=== PATIENT | female | born 1955 | race Two or more races ===

== ENCOUNTER 2024-05-27 08:19 | Emergency (ER) | payer MEDICARE, SELFPAY ==
[2024-05-27 08:37] VITALS: BP 132/76; PULSE 65; RESP 18; TEMP 36.8; O2SAT 98
[2024-05-27 08:38] VITALS: BMI 44.3
--- NOTE | 2024-05-27 08:41 | XR_ITS ---
Examination: CT chest, without intravenous contrast. CT abdomen, without intravenous contrast. CT pelvis, without intravenous contrast. 2-D sagittal and coronal reconstructions. 3-D reconstructions. Date and time of exam:May 27, 2024 at 0914 hours INDICATIONS: Patient fell out of bed this morning with injury to the chest and abdomen, chest pain abdomen pain CTDI vol (mgy) 12.6 DLP (MGycm)907 Technique: Multiple CT images, 3.0 mm slice thickness, obtained chest, abdomen, pelvis, with the high-resolution 64 slice scanner.. Sagittal and coronal 2-D reconstructions are obtained. 3-D reconstructions Low dose protocols were performed. One or more of the following dose reduction techniques were used; automated exposure control, adjustment of the mA and/or KV according to patient size, use of iterative reconstruction technique. Findings: Lack of intravenous contrast significantly limits assessment for body trauma Thoracic aorta pulmonary arteries intact No hemopericardium Significant vascular congestion No pneumothorax Atelectasis in the right lower lobe The manubrium and the body the sternum are intact No thoracic or lumbar vertebral body compression fracture Advanced degenerative disc disease L3-L4 Nondisplaced fractures right second third fourth fifth sixth seventh ribs Acute fractures left third fifth sixth seventh eighth ninth ribs without significant displacement No visualized liver splenic or renal laceration Abdominal aorta is intact No free blood in the abdomen Negative for pneumoperitoneum Fat-containing umbilical hernia Urinary bladder intact Acute fractures left third transverse process left fourth transverse process Iliac bones acetabular regions and rami appear intact with no acute hip fractures IMPRESSION: Lack of intravenous contrast significantly limits assessment for body trauma Flail chest with multiple bilateral rib fractures No pneumothorax Abdominal aorta intact No free blood in the abdomen Negative for abdominal parenchymal laceration Acute fractures left third and fourth transverse processes
--- NOTE | 2024-05-27 08:42 | PD.EDFALL ---
ED Fall Injury RME/HPI General Chief Complaint: Fall Stated Complaint: FELL FROM BED THIS MORNING; BACK HURTING Time Seen by Provider: 05/27/24 08:40 Source: patient Arrival date/time: 05/27/24 08:19 68-year-old female with a history of hyperlipidemia, type 2 diabetes on dialysis, hypertension presents to the emergency room with a chief complaint of back pain after falling off her bed this morning Mode of arrival: ambulatory Limitations: no limitations Related Data Home Medications ?Medication ?Instructions ?Recorded ?Confirmed amitriptyline 50 mg tablet 50 mg PO HS 12/12/17 06/18/22 atorvastatin 40 mg tablet 40 mg PO HS 03/08/21 06/18/22 furosemide 40 mg tablet 40 mg PO QAM 03/08/21 06/18/22 albuterol sulfate 90 mcg/actuation 2 inh inhalation QID PRN sob 05/14/21 06/18/22 aerosol inhaler gabapentin 300 mg capsule 300 mg PO HS 05/14/21 06/18/22 insulin glargine 100 unit/mL (3 42 unit subcut HS 05/14/21 06/18/22 mL) subcutaneous pen (Lantus Solostar U-100 Insulin) Held on 06/21/22. Instructions: Resume on 07/05/22. followup with PCP within 1 week for instructions on continuing insulin ergocalciferol (vitamin D2) 1,250 1,250 mcg PO QWEEK 01/05/22 06/18/22 mcg (50,000 unit) capsule (Vitamin D2) hydralazine 50 mg tablet 100 mg PO TID 01/05/22 06/18/22 vitamin B comp no.3-folic acid 1 1 tab PO QDAY 01/05/22 06/18/22 mg-vit C 60 mg-biotin 300 mcg tablet ([facility]) Previous Rx's ?Medication ?Instructions ?Recorded cefdinir 300 mg capsule 300 mg PO BID #7 caps 12/10/23 cefdinir 300 mg capsule See Rx Instructions .Route 12/10/23 .COMPLEX #7 caps hydrocodone 5 mg-acetaminophen 325 1 tab PO Q6H PRN pain #15 tabs 12/10/23 mg tablet Allergies Allergy/AdvReac Type Severity Reaction Status Date / Time Penicillins Allergy Severe RASH Verified 05/27/24 08:23 ED Exam General Limitations: Present no limitations Course Orders Category Date Time Status CT chest abdomen pelvis wo Stat Exams 05/27/24 08:41 Taken XR lumbar spine 2-3V Stat Exams 05/27/24 08:43 Taken Vital Signs Vital signs: Vital Signs Temperature 98.2 F 05/27/24 08:37 Pulse Rate 65 05/27/24 08:37 Respiratory Rate 18 05/27/24 08:37 Blood Pressure 132/76 H 05/27/24 08:37 Pulse Oximetry (%) 98 05/27/24 08:37 Oxygen Delivery Method Room Air 05/27/24 08:37 Discharge Plan Prescriptions/Referrals Prescriptions/Med Rec: No Action amitriptyline 50 mg Tablet 50 mg PO HS furosemide 40 mg Tablet 40 mg PO QAM atorvastatin 40 mg Tablet 40 mg PO HS gabapentin 300 mg Capsule 300 mg PO HS albuterol sulfate 90 mcg/actuation Hfa Aerosol Inhaler 2 inh INHALATION QID PRN (Reason: sob) insulin glargine [Lantus Solostar U-100 Insulin] 100 unit/mL (3 mL) Insulin Pen 42 unit SUBCUT HS hydrocodone-acetaminophen 5-325 mg tablet 1 tab PO Q6H MDD 4 PRN (Reason: pain) Qty: 15 0RF cefdinir 300 mg capsule 300 mg PO BID Qty: 7 0RF Rx Instructions: Take 1st dose today (1 cap). Then 300mg (1 cap) 3 times weekly on dialysis days after dialysis cefdinir 300 mg capsule See Rx Instructions .ROUTE .COMPLEX Qty: 7 0RF Rx Instructions: Take 300 mg (1 cap) orally now. Then 1 cap 3 times weekly on dialysis days after dialysis hydralazine 50 mg Tablet 100 mg PO TID ergocalciferol (vitamin D2) [Vitamin D2] 1,250 mcg (50,000 unit) Capsule 1,250 mcg PO QWEEK [facility] Rx 1-60-300 mg-mg-mcg Tablet 1 tab PO QDAY Referrals: Sara Mirza NP [Primary Care Provider] - In 1 week Patient/Caregiver Discharge Instructions Print Language: Iranian
--- NOTE | 2024-05-27 08:43 | XR_ITS ---
Examination: Lumbar spine 3 views Technique one AP lateral coned lateral lower lumbar spine 3 views Exam date and time: May 27, 2024 0856 hours INDICATIONS: Patient fell out of bed this morning with injury to lower back, lower back pain. FINDINGS: No acute lumbar fracture Advanced degenerative disc disease L3-L4 Prominent thoracolumbar spondylosis IMPRESSION: No acute lumbar fracture
--- NOTE | 2024-05-27 10:08 | PD.EDRME ---
Rapid Medical Screening Exam E Arrival date/time: 05/27/24 08:19 68-year-old female with a history of hyperlipidemia, type 2 diabetes on dialysis, hypertension presents to the emergency room with a chief complaint of back pain after falling off her bed this morning I have greeted and performed a focused initial assessment of this patient. A comprehensive ED assessment and evaluation of the patient, analysis of all test results, and completion of the medical decision making process will be conducted by additional ED providers. Chief Complaint: Fall Time Seen by Provider: 05/27/24 08:40 Vital signs: Vital Signs Temperature 98.2 F 05/27/24 08:37 Pulse Rate 65 05/27/24 08:37 Respiratory Rate 18 05/27/24 08:37 Blood Pressure 132/76 H 05/27/24 08:37 Pulse Oximetry (%) 98 05/27/24 08:37 Oxygen Delivery Method Room Air 05/27/24 08:37 Vital signs reviewed by provider: Yes
[2024-05-27 10:35] LABS: Basophils # (Auto) 0.1 Thou/mm3 (0.0-0.2); Basophils % (Auto) 0 % (0-2.5); Eosinophils # (Auto) 0.5 Thou/mm3 (0.0-0.5); Eosinophils % (Auto) 4 % (0-10); Hematocrit 34.8 % (36.0-46.0); Hemoglobin 11.4 g/dL (12.0-16.0); Immature Granulocytes % (Auto) 1 % (0-0); Immature Granulocytes Auto 0.11 Thou/mm3 (0.00-0.00); Lymphocytes # (Auto) 2.8 Thou/mm3 (1.0-4.8); Lymphocytes % (Auto) 21 % (10-50); Mean Corpuscular HGB Conc 32.8 g/dl (31.0-37.0); Mean Corpuscular Hemoglobin 32.5 pg (25.0-35.0); Mean Corpuscular Volume 99 fL (80-100); Monocytes # (Auto) 0.8 Thou/mm3 (0.0-0.8); Monocytes % (Auto) 6 % (0-12); Neutrophils # (Auto) 9.3 Thou/mm3 (1.8-7.7); Neutrophils % (Auto) 69 % (37-80); Nucleated Red Blood Cell % 0 /100 WBC (0); Platelet Count 315 Thou/mm3 (140-440); RDW Standard Deviation 55.9 fL (36.4-46.3); Red Blood Count 3.51 Miln/mm3 (4.00-5.20); White Blood Count 13.6 Thou/mm3 (3.6-11.0)
[2024-05-27 10:54] LABS: Alanine Aminotransferase 13 U/L (10-49); Albumin, Serum 4.3 gm/dL (3.4-4.8); Albumin/Globulin Ratio 1.5 (1.2-2.2); Alkaline Phosphatase 116 U/L (46-116); Anion Gap 10 (7-16); Aspartate Amino Transferase 17 U/L (0-34); BUN/Creatinine Ratio 16 Ratio (12-20); Bilirubin,Total 0.4 mg/dL (0.3-1.2); Blood Urea Nitrogen 79 mg/dL (9-23); Calcium 8.6 mg/dL (8.3-10.6); Calcium (Corrected) 8.6 mg/dL (8.5-10.1); Carbon Dioxide 24.5 mMol/L (20.0-31.0); Chloride 102 mMol/L (98-107); Estimated Creatinine Clearance 10.4 mL/min (>60); Globulin 2.9 gm/dL (2.3-3.5); Glucose 126 mg/dL (74-106); Osmolality,Calculated 297 (275-295); Potassium 5.3 mMol/L (3.4-5.1); Sodium 136 mMol/L (136-145); Total Protein 7.2 gm/dL (5.7-8.2); eGFR 9 See Note
[2024-05-27 10:58] LABS: Partial Thromboplastin Time 27.6 Seconds (22.0-36.0); Prothrombin Time 10.7 Seconds (9.0-12.2)
[2024-05-27 14:30] VITALS: BP 133/77; PULSE 60; RESP 18; TEMP 36.1; O2SAT 95
--- NOTE | 2024-05-27 15:27 | PC.NURSE ---
Patient from [facility] and taken to room 15, Dr. Doyle at bedside to evaluate patient. Patient states she rolled off her bed at 0400 this am, Patient c/o right mid back pain radiating to right mid abdomen.
--- NOTE | 2024-05-27 15:29 | PD.EDFALL ---
ED Fall Injury RME/HPI General Chief Complaint: Fall Stated Complaint: FELL FROM BED THIS MORNING; BACK HURTING Time Seen by Provider: 05/27/24 08:40 Arrival date/time: 05/27/24 08:19 RME / HPI RME / HPI Narrative: 05/27/24 08:19 68-year-old female with a history of hyperlipidemia, type 2 diabetes on dialysis, hypertension presents to the emergency room with a chief complaint of back pain after falling off her bed this morning I have greeted and performed a focused initial assessment of this patient. A comprehensive ED assessment and evaluation of the patient, analysis of all test results, and completion of the medical decision making process will be conducted by additional ED providers. DR. WALLACE MAIN ED EVALUATION: 68 year old female with history of hypertension, diabetes, ESRD on HD //Mon, hyperlipidemia presents to the ED for evaluation of chest pain, L>R, that moves around to her back beginning after fall occurring at 04:00 am today. States she rolled off the bed and landed straight on her back without any head injury or LOC. Reportedly has had pain since, that is rated as severe. Aggravated with movements or taking deep breaths. Denies head injury or LOC. Patient last received dialysis Monday and completed her treatment. Related Data Home Medications ?Medication ?Instructions ?Recorded ?Confirmed amitriptyline 50 mg tablet 50 mg PO HS 12/12/17 06/18/22 atorvastatin 40 mg tablet 40 mg PO HS 03/08/21 06/18/22 furosemide 40 mg tablet 40 mg PO QAM 03/08/21 06/18/22 albuterol sulfate 90 mcg/actuation 2 inh inhalation QID PRN sob 05/14/21 06/18/22 aerosol inhaler gabapentin 300 mg capsule 300 mg PO HS 05/14/21 06/18/22 insulin glargine 100 unit/mL (3 42 unit subcut HS 05/14/21 06/18/22 mL) subcutaneous pen (Lantus Solostar U-100 Insulin) Held on 06/21/22. Instructions: Resume on 07/05/22. followup with PCP within 1 week for instructions on continuing insulin ergocalciferol (vitamin D2) 1,250 1,250 mcg PO QWEEK 01/05/22 06/18/22 mcg (50,000 unit) capsule (Vitamin D2) hydralazine 50 mg tablet 100 mg PO TID 01/05/22 06/18/22 vitamin B comp no.3-folic acid 1 1 tab PO QDAY 01/05/22 06/18/22 mg-vit C 60 mg-biotin 300 mcg tablet ([facility]) Previous Rx's ?Medication ?Instructions ?Recorded cefdinir 300 mg capsule 300 mg PO BID #7 caps 12/10/23 cefdinir 300 mg capsule See Rx Instructions .Route 12/10/23 .COMPLEX #7 caps hydrocodone 5 mg-acetaminophen 325 1 tab PO Q6H PRN pain #15 tabs 12/10/23 mg tablet Allergies Allergy/AdvReac Type Severity Reaction Status Date / Time Penicillins Allergy Severe RASH Verified 05/27/24 08:23 Review of Systems Review of Systems Narrative Review of Systems: Gen: No fever, no chills, no weight loss EYES: No discharge, no visual changes, no pain HEENT: No ear pain, no congestion, no sore throat PULM: no shortness of breath, no cough, no congestion CV: +chest pain, no dyspnea on exertion, no palpitations, no chest tightness GI: No nausea, no vomiting, no diarrhea, no pain, no constipation : No frequency, no urgency,? no dysuria Musc/skel: +BL rib cage pain that moves around to back Skin: No rash, no ecchymosis, no lesions Neuro: No weakness, no headache Past Medical History Past Medical History CARDIAC: Positive Cardiac Disorders, Hypercholesterolemia, Congestive Heart Failure, Edema and Hypertension RESPIRATORY: Positive Pneumonia GASTROINTESTINAL: Positive Obesity GENITOURINARY: Positive Renal Disease REPRODUCTIVE: Positive Previous Pregnancies MUSCULOSKELETAL: Positive Arthritis ENDOCRINE: Positive Endocrine Disorders and Diabetes Mellitus Type 2 HEMATOLOGIC: Positive Anemia PSYCHO/SOCIAL: Positive Depression and Anxiety Family History FAMILY HISTORY: Positive Family Respiratory Disorders, Family Cardiac Disorders and Family Cancer Surgical History SURGICAL: Positive Hysterectomy Social History SMOKING STATUS: Never smoker SECOND HAND EXPOSURE: No SUBSTANCE USE: does not use ED Exam Narrative Physical exam: GENERAL APPEARANCE: AxOx4, generalized moderate distress, unable to lay flat due to pain, nontoxic appearing HEENT: NC, AT. MMM. EOMI, clear conjunctiva, oropharynx clear. NECK: Supple without lymphadenopathy. No stiffness or restricted ROM. HEART: Normal rate and regular rhythm, normal S1/S1, no m/r/g CHEST: No obvious flail segment, exam limited by patient habitus. LUNGS: CTAB, moving air well. No crackles or wheezes are heard. ABDOMEN: Soft, mild upper abdominal tenderness to palpation, no rebound, no guarding, nondistended with good bowel sounds heard. BACK: Diffuse lumbar spine tenderness. No midline C/T spine pain or deformity, No CVAT. EXTREMITIES: Without cyanosis, clubbing or edema. MUSCULOSKELETAL: FROM of all major joints NEUROLOGICAL: Grossly nonfocal. Alert and oriented, moving all 4 extremities. CN not formally tested but appear grossly intact. Skin: Warm and dry without any rash. Course Quality Measures none Orders Category Date Time Status IV [Insert IV] NOW Care 05/27/24 15:[address] cervical spine wo con Stat Exams 05/27/24 15:[address] chest abdomen pelvis wo Stat Exams 05/27/24 08:[address] head/brain wo con Stat Exams 05/27/24 15:52 Completed XR lumbar spine 2-3V Stat Exams 05/27/24 08:43 Completed CBC Stat Lab 05/27/24 10:21 Completed CMP [Comprehensive Metabolic Panel] Stat Lab 05/27/24 10:21 Completed PT [Prothrombin Time with INR] Stat Lab 05/27/24 10:21 Completed PTT [Partial Thromboplastin Time] Stat Lab 05/27/24 10:21 Completed Morphine Inj Med 05/27/24 15:33 Discontinued 4 mg IVP X1 ONE Vital Signs Vital signs: Vital Signs Temperature 98.2 F 05/27/24 08:37 Pulse Rate 65 05/27/24 08:37 Respiratory Rate 18 05/27/24 08:37 Blood Pressure 132/76 H 05/27/24 08:37 Pulse Oximetry (%) 98 05/27/24 08:37 Oxygen Delivery Method Room Air 05/27/24 08:37 Pulse ox is 98% on room air which is adequate. Fall MDM Narrative MDM Narrative:: Johnna Lui am scribing for and in the presence of Dr. Wallace. Patient data External records reviewed:: [facility] previous records (I reviewed ED visit on 12/10/2023) Clinical information provided by:: patient and family (Daughter, adds to HPI ) Social determinants that could affect healthcare access:: none Patient has the following chronic illnesses:: hypertension, diabetes, ESRD on HD T/Th/Sat, hyperlipidemia How is presenting disease/condition affected by chronic disease/condition?: exacerbated by Evaluation data The following diagnostics were reviewed and interpreted by me:: lab results and radiology exam(s) Lab and/or radiology exams considered but not ordered:: None Interpretation Summary: Ordering Physician: Bob Lucio Date of Service: 05/27/24 Procedure(s): CT chest abdomen pelvis wo Accession Number(s): [id number] cc: Bob Lucio; Sara Mirza NP; Kiel Goldman MD~ Examination: CT chest, without intravenous contrast. CT abdomen, without intravenous contrast. CT pelvis, without intravenous contrast. 2-D sagittal and coronal reconstructions. 3-D reconstructions. Date and time of exam:May 27, 2024 at 0914 hours INDICATIONS: Patient fell out of bed this morning with injury to the chest and abdomen, chest pain abdomen pain CTDI vol (mgy) 12.6 DLP (MGycm)907 Technique: Multiple CT images, 3.0 mm slice thickness, obtained chest, abdomen, pelvis, with the high-resolution 64 slice scanner.. Sagittal and coronal 2-D reconstructions are obtained. 3-D reconstructions Low dose protocols were performed. One or more of the following dose reduction techniques were used; automated exposure control, adjustment of the mA and/or KV according to patient size, use of iterative reconstruction technique. Findings: Lack of intravenous contrast significantly limits assessment for body trauma Thoracic aorta pulmonary arteries intact No hemopericardium Significant vascular congestion No pneumothorax Atelectasis in the right lower lobe The manubrium and the body the sternum are intact No thoracic or lumbar vertebral body compression fracture Advanced degenerative disc disease L3-L4 Nondisplaced fractures right second third fourth fifth sixth seventh ribs Acute fractures left third fifth sixth seventh eighth ninth ribs without significant displacement No visualized liver splenic or renal laceration Abdominal aorta is intact No free blood in the abdomen Negative for pneumoperitoneum Fat-containing umbilical hernia Urinary bladder intact Acute fractures left third transverse process left fourth transverse process Iliac bones acetabular regions and rami appear intact with no acute hip fractures IMPRESSION: Lack of intravenous contrast significantly limits assessment for body trauma Flail chest with multiple bilateral rib fractures No pneumothorax Abdominal aorta intact No free blood in the abdomen Negative for abdominal parenchymal laceration Acute fractures left third and fourth transverse processes Dictated By:Kiel Goldman MD Signed By:<Electronically signed by Kiel Goldman MD in OV>05/27/24 1000 Ordering Physician: Bob Lucio Date of Service: 05/27/24 Procedure(s): XR lumbar spine 2-3V Accession Number(s): [id number] cc: Bob Lucio; Sara Mirza ELECTRO WINNING OPERATOR; Kiel Goldman MD~ Examination: Lumbar spine 3 views Technique one AP lateral coned lateral lower lumbar spine 3 views Exam date and time: May 27, 2024 0856 hours INDICATIONS: Patient fell out of bed this morning with injury to lower back, lower back pain. FINDINGS: No acute lumbar fracture Advanced degenerative disc disease L3-L4 Prominent thoracolumbar spondylosis IMPRESSION: No acute lumbar fracture Dictated By:Kiel Goldman MD Signed By:<Electronically signed by Kiel Goldman MD in OV>05/27/24 1018 Ordering Physician: Deion Wallace MD Date of Service: 05/27/24 Procedure(s): CT cervical spine wo con Accession Number(s): [id number] cc: Sara Mirza NP; Deion Wallace MD; Kiel Goldman MD~ Examination: CT cervical spine without contrast 2-D sagittal reconstructions 2-D coronal reconstructions 3-D reconstructions. Exam date and time:May 27, 2024 1600 hours INDICATIONS: Patient fell today with injury to the neck, neck pain CTDI:vol (mGy) 8.84 DLP: (mGycm) 164 Technique: Multiple 2 mm axial sections of the cervical spine have been obtained. The coronal and sagittal reconstructions have been obtained. 3-D reconstructions have been obtained. Low dose protocols were performed. One or more of the following dose reduction techniques were used; automated exposure control, adjustment of the mA and/or KV according to patient size, use of iterative reconstruction technique. Findings: Axial sections demonstrate intact base of the skull. C1 exhibit satisfactory relationship to the odontoid. No acute cervical vertebral body fracture seen. Alignment posterior spinous processes satisfactory. Impression: No acute cervical fracture. Dictated By:Kiel Goldman MD Signed By:<Electronically signed by Kiel Goldman MD in OV>05/27/24 1614 Ordering Physician: Deion Wallace MD Date of Service: 05/27/24 Procedure(s): CT head/brain wo con Accession Number(s): [id number] cc: Sara Mirza NP; Deion Wallace MD; Kiel Goldman MD~ Examination: CT brain head without contrast. 2-D sagittal coronal reconstructions Date and time of exam:May 27, 2024 1600 hours INDICATIONS: Patient fell today with injury to the head, head pain CTDI: vol (mGy):46.6 DLP: (mGycm):99 Technique: Multiple CT axial sections of the brain have been obtained, 5 mm slice thickness. Contrast has not been administered. 2-D sagittal, coronal reconstructions have been obtained Low dose protocols were performed. One or more of the following dose reduction techniques were used; automated exposure control, adjustment of the mA and/or KV according to patient size, use of iterative reconstruction technique. Findings: No significant ventricular enlargement. Intra-axial or extra-axial hemorrhage density is not seen. No mass effect or midline shift Basal cisterns are not remarkable. Fourth ventricle is midline. Cranial vault intact. Impression: Negative for acute hemorrhage, mass effect or midline shift Dictated By:Kiel Goldman MD Signed By:<Electronically signed by Kiel Goldman MD in OV>05/27/24 1616 Medications / Prescriptions Medications or Prescriptions considered but not ordered:: None Medication administrations:: Medication Administration History Discontinued Medications Morphine Sulfate (Morphine Sulf Inj 10 Mg/Ml Vial) 4 mg IVP X1 ONE Stop: 05/27/24 15:34 Last Admin: 05/27/24 16:21 Dose: 4 mg Documented By: CHIDI See above Consultations Consultation(s) initiated? (list below): Yes Consultation #1 (Physician, Specialty, Details): I spoke with Dr. Sawyer at [facility]. Discussed patients PMHx, HPI, ED course, exam findings, labs, and radiology results. He accepts the patient for transfer, ER to ER. Time: 17:22 Diagnosis Fall Differential Diagnosis: syncope, fracture of wrist and compression fracture Most likely diagnosis given after review of the tests above:: See below Admission Indicated Admission indicated?: not indicated Explain why admission is indicated or not indicated:: Txfer to [facility] for trauma Admission Request Was there a request for admission?: No Disposition Plan Disposition Plan: Transfer ([facility]) Discharge Plan Plan Patient Disposition: Xfer Acute Care [facility] Facility Pt Being Transferred to: [facility] Prescriptions/Referrals Prescriptions/Med Rec: No Action amitriptyline 50 mg Tablet 50 mg PO HS furosemide 40 mg Tablet 40 mg PO QAM atorvastatin 40 mg Tablet 40 mg PO HS gabapentin 300 mg Capsule 300 mg PO HS albuterol sulfate 90 mcg/actuation Hfa Aerosol Inhaler 2 inh INHALATION QID PRN (Reason: sob) insulin glargine [Lantus Solostar U-100 Insulin] 100 unit/mL (3 mL) Insulin Pen 42 unit SUBCUT HS hydrocodone-acetaminophen 5-325 mg tablet 1 tab PO Q6H MDD 4 PRN (Reason: pain) Qty: 15 0RF cefdinir 300 mg capsule 300 mg PO BID Qty: 7 0RF Rx Instructions: Take 1st dose today (1 cap). Then 300mg (1 cap) 3 times weekly on dialysis days after dialysis cefdinir 300 mg capsule See Rx Instructions .ROUTE .COMPLEX Qty: 7 0RF Rx Instructions: Take 300 mg (1 cap) orally now. Then 1 cap 3 times weekly on dialysis days after dialysis hydralazine 50 mg Tablet 100 mg PO TID ergocalciferol (vitamin D2) [Vitamin D2] 1,250 mcg (50,000 unit) Capsule 1,250 mcg PO QWEEK [facility] Rx 1-60-300 mg-mg-mcg Tablet 1 tab PO QDAY Referrals: Sara Mirza NP [Primary Care Provider] - In 1 week Problem List Clinical Impression: Multiple fractures of ribs, Flail chest, Lumbar transverse process fracture, End stage renal disease on dialysis, Breath shortness Patient/Caregiver Discharge Instructions Print Language: Georgian Stand Alone Forms: [facility] Award Info., Patient Portal Info Letter
--- NOTE | 2024-05-27 15:32 | PC.NURSE ---
Patient states she is unable to lay flat feels like there is too much weight in her chest when she lays down and states she has a hard time breathing.
--- NOTE | 2024-05-27 15:52 | XR_ITS ---
Examination: CT brain head without contrast. 2-D sagittal coronal reconstructions Date and time of exam:May 27, 2024 1600 hours INDICATIONS: Patient fell today with injury to the head, head pain CTDI: vol (mGy):46.6 DLP: (mGycm):99 Technique: Multiple CT axial sections of the brain have been obtained, 5 mm slice thickness. Contrast has not been administered. 2-D sagittal, coronal reconstructions have been obtained Low dose protocols were performed. One or more of the following dose reduction techniques were used; automated exposure control, adjustment of the mA and/or KV according to patient size, use of iterative reconstruction technique. Findings: No significant ventricular enlargement. Intra-axial or extra-axial hemorrhage density is not seen. No mass effect or midline shift Basal cisterns are not remarkable. Fourth ventricle is midline. Cranial vault intact. Impression: Negative for acute hemorrhage, mass effect or midline shift
--- NOTE | 2024-05-27 15:52 | XR_ITS ---
Examination: CT cervical spine without contrast 2-D sagittal reconstructions 2-D coronal reconstructions 3-D reconstructions. Exam date and time:May 27, 2024 1600 hours INDICATIONS: Patient fell today with injury to the neck, neck pain CTDI:vol (mGy) 8.84 DLP: (mGycm) 164 Technique: Multiple 2 mm axial sections of the cervical spine have been obtained. The coronal and sagittal reconstructions have been obtained. 3-D reconstructions have been obtained. Low dose protocols were performed. One or more of the following dose reduction techniques were used; automated exposure control, adjustment of the mA and/or KV according to patient size, use of iterative reconstruction technique. Findings: Axial sections demonstrate intact base of the skull. C1 exhibit satisfactory relationship to the odontoid. No acute cervical vertebral body fracture seen. Alignment posterior spinous processes satisfactory. Impression: No acute cervical fracture.
--- NOTE | 2024-05-27 16:08 | PC.CC ---
Addendum entered by Lilibeth Villa RN 05/27/24 17:56: transport set up for 1900 Addendum entered by Lilibeth Villa RN 05/27/24 17:54: Chart printed, paperwork signed by family and physician, disk obtained, chart given to charge nurse, report number given to primary RN Addendum entered by Lilibeth Villa RN 05/27/24 17:26: Pt accepted by Jamee to [facility] under Dr. Ojeda ED to ED, report to be called to [phone] Addendum entered by Lilibeth Villa RN 05/27/24 17:22: 1720- Jamee from [facility] called back to speak to Dr. Doyle at this time Addendum entered by Lilibeth Villa RN 05/27/24 17:22: 1704- faxed chart to [facility], pushed all images, called and spoke to Joseline who states she will call back Addendum entered by Lilibeth Villa RN 05/27/24 16:58: Spoke to Jamee at [facility] to initiate transfer, updated records faxed, Jamee suggested to call other facilities Original Note: Made aware by Dr. Doyle that pt needs transfer for trauma, chart faxed to [facility]
[2024-05-27] MEDS: MORPHINE SULF INJ 10 MG/ML VIAL 4 MG IVP ×2 (16:21→19:04)
[2024-05-27 19:00] VITALS: BP 137/78; PULSE 60; RESP 16; TEMP 36.4; O2SAT 95
--- NOTE | 2024-05-27 19:07 | PC.NURSE ---
Report given to Steve at [facility] [place] er and Jose Luis fence machine operator, whom is here to transfer patient to their facility
== END 2024-05-27 19:10 | disposition short-term general hospital (02) ==
PROVIDERS: Nurse Practitioner Family; Emergency Provider Emergency Medicine; PCP Nurse Practitioner Family
DX: S22.5XXA Flail chest, initial encounter for closed fracture (principal); S32.039A Unspecified fracture of third lumbar vertebra, initial encounter for closed fracture; S32.049A Unspecified fracture of fourth lumbar vertebra, initial encounter for closed fracture; R51.9 Headache, unspecified; E11.22 Type 2 diabetes mellitus with diabetic chronic kidney disease; I13.2 Hypertensive heart and chronic kidney disease with heart failure and with stage 5 chronic kidney disease, or end stage renal disease; N18.6 End stage renal disease; I50.9 Heart failure, unspecified; E78.00 Pure hypercholesterolemia, unspecified; Z99.2 Dependence on renal dialysis; E66.9 Obesity, unspecified; Z68.41 Body mass index [BMI] 40.0-44.9, adult; W06.XXXA Fall from bed, initial encounter
CPT/HCPCS: 36415; 70450; 71250; 72100; 72125; 74176; 80053; 85025; 85610; 85730; 96374; 99285; J2270